=== PATIENT | male | born 1955 | race Caucasian/White ===

== ENCOUNTER 2018-07-23 17:38 | Emergency (ER) | payer OTHER ==
[2018-07-23 18:57] LABS: Absolute Lymphocytes (CBC) 1.6 K/uL (0.7-4.9); Absolute Monocytes 0.3 K/uL (0.1-1.3); Absolute Neutrophil 3.3 K/uL (1.8-8.0); Basophils % 0.4 % (0-1.3); Eosinophils % 0.5 % (0-4.4); Hematocrit 40.7 % (39.6-49.0); Lymphocytes % 30.1 % (15.3-44.8); MPV 6.8 fL (7.6-11.3); Monocytes % 6.4 % (3.3-12.3); Protime INR 1.1; RBC Red Blood Cell Count 4.55 M/uL (4.33-5.43)
--- NOTE | 2018-07-23 19:00 | RAD REPORT ---
EXAM DESCRIPTION: RAD - Chest Single View - 07/23/2018 6:51 pm CLINICAL HISTORY: Leg swelling, shortness of breath COMPARISON: None. TECHNIQUE: AP portable chest image was obtained 1839 hours . FINDINGS: Lungs are clear. Heart and vasculature are normal. No measurable pleural effusion and no p neumothorax. No acute bony abnormality seen. No acute aortic findings suspected. IMPRESSION: No acute cardiopulmonary process.
[2018-07-23 19:14] LABS: ALT/SGPT 33 U/L (12-78); AST/SGOT 27 U/L (15-37); Albumin 3.9 g/dL (3.4-5.0); Alkaline Phosphatase 70 U/L (45-117); BUN Blood Urea Nitrogen 18 mg/dL (7-18); Bicarbonate 29 mmol/L (21-32); Bilirubin Direct 0.2 mg/dL (0-0.2); Bilirubin Total 0.6 mg/dL (0.2-1.0); Glucose Level 84 mg/dL (74-106); Magnesium 1.8 mg/dL (1.8-2.4); NT PRO-BNP 242 pg/mL (<125); Sodium Level 143 mmol/L (136-145); Troponin (Emerg Dept Use Only) < 0.02 ng/mL (0.0-0.045)
--- NOTE | 2018-07-23 20:20 | RAD REPORT ---
EXAM DESCRIPTION: US - Extremity Venous Uni Ltd - 07/23/2018 7:09 pm CLINICAL HISTORY: Left leg pain and swelling COMPARISON: None. TECHNIQUE: Real-time sonographic evaluation of the left lower extremity deep venous system was perfo rmed. FINDINGS: Normal compressibility, flow augmentation, phasic flow and spontaneous flow are identified in the left lower extremity common femoral, superficial femoral, popliteal and posterior tibial vein s. No intraluminal filling defects seen. IMPRESSION: No DVT in the left lower extremity.
--- NOTE | 2018-07-23 20:52 | ER ---
Nurse's Notes [facility] Name: Natanael Farooq Age: 63 yrs Sex: Male : 1955 Arrival Date: 07/23/2018 Time: 17:42 Bed 8 Private MD: None, None Diagnosis: Pain in left leg;Edema, unspecified Presentation: 07/23 17:52 Presenting complaint: Patient states: left leg swelling. Pt states "I just noticed the aa5 swelling today". Pt denies pain to leg. Transition of care: patient was not received from another setting of care. Onset of symptoms was June 2018. Risk Assessment: Do you want to hurt yourself or someone else? Patient reports no desire to harm self or others. Initial Sepsis Screen: Does the patient meet any 2 criteria? No. Patient's initial sepsis screen is negative. Does the patient have a suspected source of infection? No. Patient's initial sepsis screen is negative. Care prior to arrival: None. 17:52 Method Of Arrival: Ambulatory aa5 17:52 Acuity: AMRITA 3 aa5 Triage Assessment: 18:06 General: Appears in no apparent distress. uncomfortable, Behavior is calm, cooperative, bp appropriate for age. 18:06 Pain: Complains of pain in left leg. bp Historical: - Allergies: 17:53 PENICILLINS; aa5 - PMHx: 17:53 Myocardial infarction; DVT; Hypertension; aa5 - PSHx: 17:53 Heart stents; Heart bypass; aa5 17:55 Cholecystectomy; back; lumbar and cervical fusion; Hernia repair; colon resection; aa5 - Immunization history:: Flu vaccine is up to date. - Social history:: Smoking status: Patient/guardian denies using tobacco. - Ebola Screening: : No symptoms or risks identified at this time. Screenin:07 Abuse screen: Denies threats or abuse. Denies injuries from another. Nutritional bp screening: No deficits noted. Tuberculosis screening: No symptoms or risk factors identified. Fall Risk None identified. Assessment: 18:35 Neuro: Reports numbness in left leg. Musculoskeletal: Capillary refill is > 3 seconds, pc1 in right in left toes. Range of motion: intact in all extremities, Swelling Pt reports swelling to the left leg 19:35 Reassessment: Patient appears in no apparent distress at this time. Patient and/or ed1 family updated on plan of care and expected duration. Pain level reassessed. Patient is alert, oriented x 3, equal unlabored respirations, skin warm/dry/pink. Pt states "I have been here since 5pm and I haven't eaten all day. I am ready to get my results and go." Pt sitting up in chair. I offered to help the patient to the bed and elevate the leg. Pt refused. Patient states symptoms have not improved. 20:33 Reassessment: Patient appears in no apparent distress at this time. No changes from ed1 previously documented assessment. Patient and/or family updated on plan of care and expected duration. Pain level reassessed. Patient is alert, oriented x 3, equal unlabored respirations, skin warm/dry/pink. Pt states "I definitely feel worse then when I got here." Patient states symptoms have not improved. Vital Signs: 17:55 BP 147 / 90; Pulse 72; Resp 18 S; Temp 97.6(TE); Pulse Ox 100% on R/A; Weight 115.67 kg aa5 (R); Height 6 ft. 0 in. (182.88 cm) (R); Pain 0/10; 18:53 BP 144 / 93; Pulse 71; Resp 16; Pulse Ox 100% ; bp 19:35 BP 137 / 89; Pulse 69; Resp 18; Pulse Ox 98% on R/A; Pain 3/10; ed1 21:01 BP 132 / 86; Pulse 71; Resp 17; Temp 97.8(O); Pulse Ox 99% on R/A; Pain 3/10; ed1 17:55 Body Mass Index 34.58 (115.67 kg, 182.88 cm) aa5 ED Course: 17:42 Patient arrived in ED. dl4 17:42 None, None is Private Physician. dl4 17:49 Linh Sousa FNP-C is [facility]. snw 17:49 Eduardo Valle MD is Attending Physician. snw 17:52 Arm band placed on. aa5 17:53 Triage completed. aa5 18:04 Kolby Braun, AYANNA is Primary Nurse. bp 18:07 Patient has correct armband on for positive identification. Bed in low position. Call bp light in reach. Side rails up X2. Adult w/ patient. 18:30 Inserted saline lock: 20 gauge in right antecubital area, using aseptic technique. bp Blood collected. 18:41 XRAY Chest (1 view) In Process Unspecified. EDMS 19:01 Primary Nurse role handed off by Kolby Braun, RN ed1 19:01 Deisy Merritt, RN is Primary Nurse. ed1 19:03 Patient taken to ultrasound. via stretcher. ed1 19:10 US Extremity Venous Unilateral Ltd In Process Unspecified. EDMS 21:01 No provider procedures requiring assistance completed. IV discontinued, intact, ed1 bleeding controlled, No redness/swelling at site. Pressure dressing applied. Administered Medications: No medications were administered Outcome: 20:51 Discharge ordered by MD. snw 21:01 Discharged to home ambulatory, with significant other. ed1 21:01 Condition: good 21:01 Discharge instructions given to patient, Instructed on discharge instructions, follow up and referral plans. medication usage, Demonstrated understanding of instructions, follow-up care, medications, Prescriptions given X 1. 21:02 Patient left the ED. ed1 Signatures: Dispatcher [employer] EDCA Linh Sousa, BIRTH CERTIFICATE CLERK-C BIRTH CERTIFICATE CLERK-Csnw Mary Jane Finn, RN RN aa5 Deisy Merritt, RN RN ed1 Kolby Braun, RN RN Castillo [place] dl4 Stuart Lucas pc1 Corrections: (The following items were deleted from the chart) 18:07 18:06 Pain: bp bp
--- NOTE | 2018-07-23 20:52 | EDPHYS ---
Physician Documentation [facility] Name: Natanael Farooq Age: 63 yrs Sex: Male : 1955 Arrival Date: 07/23/2018 Time: 17:42 Bed 8 Private MD: None, None ED Physician Eduardo Valle HPI: 07/23 18:52 This 63 yrs old Male presents to ER via Ambulatory with complaints of Leg snw Swelling. 18:52 The patient presents with swelling. The complaints affect the left lateral ankle, left snw calf, left Achilles and anterior aspect of left ankle. Context: The problem was sustained at home, resulted from an unknown cause, the patient can fully bear weight, the patient is able to ambulate, hx of DVT. Onset: The symptoms/episode began/occurred suddenly, and became persistent. Associated signs and symptoms: Pertinent positives: calf tenderness, swelling, tingling. Severity of symptoms: At their worst the symptoms were mild, moderate. The patient has experienced a previous episode. The patient has not recently seen a physician, pt lives in [facility], denies , sees cardiology there. Pt was on Plavix for years and was taken off. Takes 81mg ASA daily. Took Eliquis s/p DVT for a while. Historical: - Allergies: 17:53 PENICILLINS; aa5 - PMHx: 17:53 Myocardial infarction; DVT; Hypertension; aa5 - PSHx: 17:53 Heart stents; Heart bypass; aa5 17:55 Cholecystectomy; back; lumbar and cervical fusion; Hernia repair; colon resection; aa5 - Immunization history:: Flu vaccine is up to date. - Social history:: Smoking status: Patient/guardian denies using tobacco. - Ebola Screening: : No symptoms or risks identified at this time. ROS: 18:59 Constitutional: Negative for fever, chills, and weight loss, Eyes: Negative for injury, snw pain, redness, and discharge, ENT: Negative for injury, pain, and discharge, Neck: Negative for injury, pain, and swelling, Cardiovascular: Negative for chest pain, palpitations, and edema, Respiratory: Negative for shortness of breath, cough, wheezing, and pleuritic chest pain, Abdomen/GI: Negative for abdominal pain, nausea, vomiting, diarrhea, and constipation, Back: Negative for injury and pain, : Negative for injury, bleeding, discharge, and swelling, Skin: Negative for injury, rash, and discoloration, Neuro: Negative for headache, weakness, numbness, tingling, and seizure. 18:59 MS/extremity: Positive for swelling, of the left leg. Exam: 19:00 Constitutional: This is a well developed, well nourished patient who is awake, alert, snw and in no acute distress. Head/Face: Normocephalic, atraumatic. Eyes: Pupils equal round and reactive to light, extra-ocular motions intact. Lids and lashes normal. Conjunctiva and sclera are non-icteric and not injected. Cornea within normal limits. Periorbital areas with no swelling, redness, or edema. ENT: Nares patent. No nasal discharge, no septal abnormalities noted. Tympanic membranes are normal and external auditory canals are clear. Oropharynx with no redness, swelling, or masses, exudates, or evidence of obstruction, uvula midline. Mucous membranes moist. Neck: Trachea midline, no thyromegaly or masses palpated, and no cervical lymphadenopathy. Supple, full range of motion without nuchal rigidity, or vertebral point tenderness. No Meningismus. Chest/axilla: Normal chest wall appearance and motion. Nontender with no deformity. No lesions are appreciated. Cardiovascular: Regular rate and rhythm with a normal S1 and S2. No gallops, murmurs, or rubs. Normal PMI, no JVD. No pulse deficits. Respiratory: Lungs have equal breath sounds bilaterally, clear to auscultation and percussion. No rales, rhonchi or wheezes noted. No increased work of breathing, no retractions or nasal flaring. Abdomen/GI: Soft, non-tender, with normal bowel sounds. No tympany. No guarding or rebound. No evidence of tenderness throughout. Mild distention Back: No spinal tenderness. No costovertebral tenderness. Full range of motion. Skin: Warm, dry with normal turgor. Normal color with no rashes, no lesions, and no evidence of cellulitis. Neuro: Awake and alert, GCS 15, oriented to person, place, time, and situation. Cranial nerves II-XII grossly intact. Motor strength 5/5 in all extremities. Sensory grossly intact. Cerebellar exam normal. Normal gait. 19:00 Musculoskeletal/extremity: Extremities: grossly normal except: ROM: no acute changes, Circulation is intact in all extremities. Tingling of extremity. lower extremity bilateral 1+ pitting edema. Vital Signs: 17:55 BP 147 / 90; Pulse 72; Resp 18 S; Temp 97.6(TE); Pulse Ox 100% on R/A; Weight 115.67 kg aa5 (R); Height 6 ft. 0 in. (182.88 cm) (R); Pain 0/10; 18:53 BP 144 / 93; Pulse 71; Resp 16; Pulse Ox 100% ; bp 19:35 BP 137 / 89; Pulse 69; Resp 18; Pulse Ox 98% on R/A; Pain 3/10; ed1 21:01 BP 132 / 86; Pulse 71; Resp 17; Temp 97.8(O); Pulse Ox 99% on R/A; Pain 3/10; ed1 17:55 Body Mass Index 34.58 (115.67 kg, 182.88 cm) aa5 MDM: 17:58 Patient medically screened. [facility] 07/24 00:59 Data reviewed: vital signs, nurses notes. Data interpreted: Pulse oximetry: on room air snw is 99 %. Interpretation: normal. Counseling: I had a detailed discussion with the patient and/or guardian regarding: the historical points, exam findings, and any diagnostic results supporting the discharge/admit diagnosis, the presence of at least one elevated blood pressure reading (>120/80) during this emergency department visit, lab results, radiology results, the need for outpatient follow up, to return to the emergency department if symptoms worsen or persist or if there are any questions or concerns that arise at home. Special discussion: I have referred the patient to see his PCP for further evaluation of high blood pressure. Based on the history and exam findings, there is no indication for further emergent testing or inpatient evaluation. I discussed with the patient/guardian the need to see the elevator serviceman for further evaluation of the symptoms. I discussed with the patient/guardian the need to see the primary care provider for further evaluation of the symptoms. 07/23 18:33 Order name: Basic Metabolic Panel; Complete Time: 19:17 snw 07/23 18:33 Order name: CBC with Diff; Complete Time: 19:03 snw 07/23 18:33 Order name: LFT's; Complete Time: 19:17 snw 07/23 18:33 Order name: Magnesium; Complete Time: 19:17 snw 07/23 18:33 Order name: NT PRO-BNP; Complete Time: 19:17 snw 07/23 18:33 Order name: PT-INR; Complete Time: 19:03 w 07/23 18:33 Order name: Troponin (emerg Dept Use Only); Complete Time: 19:17 snw 07/23 18:33 Order name: XRAY Chest (1 view); Complete Time: 19:03 w 07/23 18:33 Order name: EKG; Complete Time: 18:34 snw 07/23 18:33 Order name: Cardiac monitoring; Complete Time: 18:52 snw 07/23 18:33 Order name: EKG - Nurse/Tech; Complete Time: 18:52 w 07/23 18:33 Order name: IV Saline Lock; Complete Time: 18:52 snw 07/23 18:33 Order name: Labs collected and sent; Complete Time: 18:52 snw 07/23 18:33 Order name: US Extremity Venous Unilateral Ltd; Complete Time: 20:23 w 07/23 18:33 Order name: O2 Per Protocol; Complete Time: 18:52 w 07/23 18:33 Order name: O2 Sat Monitoring; Complete Time: 18:51 snw Administered Medications: No medications were administered Disposition: 07/23/18 20:51 Discharged to Home. Impression: Pain in left leg, Edema, unspecified. - Condition is Stable. - Discharge Instructions: Edema, Heat Therapy, Peripheral Edema. - Prescriptions for Ultram 50 mg Oral Tablet - take 1 tablet by ORAL route every 6 hours As needed; 20 tablet. - Medication Reconciliation Form, Thank You Letter, Antibiotic Education, Prescription Opioid Use form. - Follow up: Private Physician; When: 2 - 3 days; Reason: Recheck today's complaints, Continuance of care, Re-evaluation by your physician. Follow up: Emergency Department; When: As needed; Reason: Worsening of condition. Signatures: Dispatcher [employer] EDEduardo Moreira MD MD cha Therrien, Shelly, TOOLS DEVELOPER-C TOOLS DEVELOPER-Csnw Mary Jane Finn, RN RN aa5 Deisy Merritt RN RN ed1 Corrections: (The following items were deleted from the chart) 07/23 21:02 20:51 07/23/2018 20:51 Discharged to Home. Impression: Pain in left leg; Edema, ed1 unspecified. Condition is Stable. Forms are Medication Reconciliation Form, Thank You Letter, Antibiotic Education, Prescription Opioid Use. Follow up: Private Physician; When: 2 - 3 days; Reason: Recheck today's complaints, Continuance of care, Re-evaluation by your physician. Follow up: Emergency Department; When: As needed; Reason: Worsening of condition. snw
--- NOTE | 2018-07-24 06:56 | EKG ---
Test Date: 2018-07-23 Test Time: 18:43:45 Newspaper Editor Managing: MIGUELANGEL MEASUREMENT RESULTS: Intervals: Rate: 68 IN: 148 QRSD: 88 QT: 406 QTc: 431 [place]: P: 32 IN: 148 QRS: 30 T: 60 INTERPRETIVE STATEMENTS: Normal sinus rhythm Normal ECG No previous ECG available for comparison Electronically Signed On 07-24-18 06:54:45 [employer]UST VAULT CUSTODIAN by Woody Wong
== END 2018-07-23 21:02 | disposition home or self-care (01) ==
LOC: ER 17:38
DX: R60.9 Edema, unspecified (principal); I10 Essential (primary) hypertension; Z88.0 Allergy status to penicillin; Z95.1 Presence of aortocoronary bypass graft; Z95.818 Presence of other cardiac implants and grafts
CPT/HCPCS: 36415; 71045; 80048; 80076; 83735; 83880; 84484; 85025; 85610; 93005; 93971; 99284